=== PATIENT | female | born 1940 | race Caucasian/White ===

== ENCOUNTER 2023-07-11 16:21 | Inpatient (IN) | payer OTHER, SELFPAY ==
[2023-07-11 13:48] VITALS: BP 170/86
[2023-07-11 13:50] VITALS: BMI 28.9
--- NOTE | 2023-07-11 13:50 | ED.GENMED ---
History of Present Illness
General
Chief Complaint: Breathing Problem
Time Seen by Provider: 07/11/23 13:44
Travel History
Have you had any contact with someone who has COVID-19?: No
Do you have any symptoms of coronavirus? Fever > 100 degrees, chills, cough, shortness of breath, sore throat, loss of taste or smell, muscle aches, or headache?: Yes
Symptoms:: see note
History of Present Illness
History of Present Illness:
83-year-old female with history of hypertension, hyperlipidemia, [id number] diabetes, and recently diagnosed asthma presents to the emergency department for evaluation of shortness of breath. She has had cough congestion over the past
week, gradually worsening for the past 2 to 3 days. Went to urgent care today where she was noted to be in respiratory distress with a room air pulse oximeter of 84%. She was given a nebulizer treatment and 9 1 was called. On arrival the patient
has completed her nebulizer but has audible expiratory wheezing with prolonged expiratory phase. She is tachypneic with accessory muscle use. She is not on any daily controller medications for her asthma
Past History
Past History
ED Past Medical History: GERD and HTN
Social History
Tobacco: Non-smoker
Alcohol: None
Review of Systems
Review of Systems
Allergies reviewed?: Yes
All Other Systems: ROS reviewed and negative except as documented in HPI and ROS
Phy Exam
Physical Exam
Physical Exam:
GEN: Ill-appearing, acutely distressed, 5-6 word dyspnea
HEENT: Oral mucosa moist, no scleral icterus
Cardiac: Mildly tachycardic, regular
Lung: Acute distress with accessory muscle use, conversational dyspnea, and coarse expiratory wheezes heard throughout with prolonged expiratory phase
MSK: No gross deformity or injuries
Skin: Good color, no pallor or jaundice, no rashes
Neuro: AO x3, moves all extremities freely
Psych: Calm, cooperative
Scores
Heart Failure Risk
Heart Failure Risk Score: Not Applicable
Course
Orders/Labs/Results
Orders:
Orders
07/11/23 13:48
Albuterol Sulfate [Ventolin Nebules] 10 mg INH R NOW STA
Ipratropium Nebs [Atrovent Nebules] 1 mg INH R NOW STA
Magnesium Sulfate 2 Gram/50 ml [Magnesium Sulfate] 2 gram in 50 ml IV NOW
MethylPREDNISolone PF [Solu-Medrol Pf] 60 mg IV NOW STA
07/11/23 13:50
CR Chest Portable - 1 View Urgent
Comment:
Reason For Exam: SOB
Reason Study Needs to be Portable: Other
07/11/23 13:53
COVID-19 Antigen Urgent
Source: Nasal Swab
Complete Blood Count/With Diff Urgent
Comprehensive Metabolic Panel Urgent
D-Dimer Urgent
Comment: ADD ON
Lactic Acid Q4H
Comment: CANCEL 2nd LACTIC ACID IF 1st LACTIC ACID IS LESS THAN 2
Procalcitonin Urgent
PCT Algorithmm Indication: Respiratory
Prothrombin Time Urgent
Venous Blood Gas Urgent
%Oxygen/Room Air: 84
Blood Culture Q30M
FRANCHESKA Source: Blood/Venous
Specimen Description:
Influenza A+B Rapid Molecular Urgent
FRANCHESKA Source: Nasal Swab
Specimen Description:
07/11/23 13:57
Blood Culture Q30M
FRANCHESKA Source: Blood/Venous
Specimen Description:
07/11/23 14:14
Respiratory Syncytial Virus Urgent
FRANCHESKA Source: Nasal Swab
Specimen Description:
Date Specimen was Collected: 07/11/23
Time Specimen was Collected: 14:11
07/11/23 15:39
Add On- LAB Routine
Tests Added?: BNP
07/11/23 15:44
Admit/Transfer Patient As Directed
Co-Sign Provider:
Level of Care: Inpatient admission
Assign to:: Telemetry
Physician / Group: Quoc
Diagnosis: Hypoxia, Asthma Exacerbation
Reason for Telemetry: Arrhythmia
Date to Stop Telemetry: 07/14/23
Time to Stop Telemetry: 11:00
Reason for Hospitalization: IV steroids, nebs, oxygen
Expected length of stay greater than two midnights?: Yes
ELOS- Estimated Length of Stay in days: 3
I certify the patient meets the requirements for IP care: Yes
07/11/23 15:47
Code Status As Directed
Resuscitation Status: Full Code
07/11/23 15:51
EKG [Electrocardiogram (*1)] Urgent
Reason for Study: Shortness of Breath
07/11/23 15:55
Add On- LAB Urgent
Tests Added?: ddimer
07/11/23 16:18
NT-proBNP Routine
Comment: ADD ON
Troponin I Q6H
Sputum Culture [Respiratory Culture/Gram Stain] Urgent
FRANCHESKA Source: Sputum
Specimen Description:
07/11/23 17:04
Acetaminophen [Tylenol] 650 mg PO Q4HPRN PRN
Dextrose 50%-Water [Dextrose 50% Syringe] 12.5 grams IV [id number] PRN
Glucagon [GlucaGen] 1 mg IM PRN PRN
Insulin Aspart Corrective Mod [Novolog Flexpen-Moderate Resistance] See Protocol SC AC
Ipratropium/Albuterol Sulfate [Duoneb] 3 ml INH R Q4HPRN PRN
Ipratropium/Albuterol Sulfate [Duoneb] 3 ml INH R QID
07/11/23 17:04
Echo 2D MMode Color/Doppler Routine
Reason for Study: dyspnea on exertion
Activity As Directed
Activity Level: Out of Bed-Early Mobility
With Assistance
Bedside Glucose Monitoring As Directed
Frequency: AC&HS
Comment: Change to q6h if pt on TPN, tube feeding or not eating
I&O [Intake/ Output] As Directed
Frequency: q12h
Vital Signs As Directed
Frequency: Per unit guidelines
Weight As Directed
Frequency: Daily
DX Deep Vein Thrombosis Video Routine
07/11/23 18:00
Atorvastatin [Lipitor] 40 mg PO QPM
Enoxaparin Sodium [Lovenox] 40 mg SC QPM
07/11/23 20:00
Doxycycline [Vibramycin] 100 mg PO Q12
Guaifenesin [Mucinex] 600 mg PO Q12
07/11/23 22:00
Troponin I Q6H
Dexamethasone Sod Phosphate [Decadron] 4 mg IV Q8H
07/12/23 04:00
Troponin I Q6H
07/12/23 Breakfast
2000 calorie (17 carb) Diabetic
At Your Request: Full Participation
Diabetic Diet: Sodium, 2 Gram
Glycohemoglobin (HgbA1c) IN AM
07/12/23 08:00
Amlodipine [Norvasc] 10 mg PO DAILY
Aspirin Low Dose EC [Aspir Low (Enteric Coated)] 81 mg PO DAILY
Glimepiride [Amaryl] 1 mg PO DAILY
Pantoprazole [Protonix] 40 mg PO DAILY
07/14/23 11:00
DC Protocol for Telemetry ONCE
Abnormal Lab Results
07/11/23
13:53
RBC 5.62 H 10^6/uL
(4.20-5.40)
Hgb 16.2 H g/dL
(12.0-16.0)
Hct 47.1 H %
(37.0-47.0)
D-Dimer 0.57 H ug/mlFEU
(0.00-0.50)
VBG pCO2 50 H mmHg
(35-48)
VBG pO2 56 H mmHg
(30-50)
VBG HCO3 28.2 H mmol/L
(22-27)
Glucose 134 H mg/dl
(70-99)
Alkaline Phosphatase 164 H U/L
(38-126)
07/11/23 13:53
07/11/23 13:53
Vital Signs
Initial and Last Documented VS:
Initial Vital Signs
Pulse Resp Pulse Ox
76 20 98
07/11/23 13:40 07/11/23 13:40 07/11/23 13:40
Last Documented Vital Signs
Temp Pulse Resp BP Pulse Ox
98.0 F 72 16 144/73 96
07/11/23 19:15 07/11/23 20:04 07/11/23 20:04 07/11/23 19:15 07/11/23 20:04
MDM/Problems Addressed
MDM/Problems Addressed:
83-year-old female presents in respiratory distress. Etiology is most likely reactive airway disease/asthma given profound wheezing and prolonged expiratory phase. Chest x-ray shows no evidence for infiltrate, the patient has no chest pain to
suggest pulmonary embolism. Her labs are otherwise reassuring, viral panel is negative. Negative procalcitonin supports lack of need for antibiotics at this juncture. Due to persistent symptoms despite hour-long nebulizer, IV magnesium, and
steroids will admit the patient to the hospitalist service for further management
*Critical Care Note
Total Time (30-74mins, 75-104mins- exclusive of procedures): 40 minutes
comment:
Critical care time: 40 minutes
Critical care time was exclusive of: Separately billable procedures, treating other patients, and teaching time
Critical care was necessary to treat or prevent imminent or life-threatening deterioration of the following conditions: Acute respiratory distress
Critical care time spent personally by me on the following activities:
[x] Review of old charts
[x] Obtaining history from patient or surrogate
[x] Ordering and review of the laboratory studies
[x] Ordering and review of radiographic studies
[x] Ordering and performing treatments and interventions
[x] Patient patient's response to treatment
[x] Development of treatment plan with patient or surrogate
ED Attending Note
-
Portions of this chart may have been created with voice recognition software.� Occasional wrong word or��sound alike� substitutions may have occurred due to the inherent limitations of voice recognition software.
Discharge Plan
Departure
Patient Disposition: Admit
Date of Disposition: 07/11/23
Time of Disposition: 14:59
Admit to: Med/Surg
Presentation/result/management discussed w/ accepting MD/DO: Hospitalist
Discharge Problem:
Asthma exacerbation, Acute hypoxic respiratory failure
Interventions
Interventions:
*Risk Screen - Suicide Last Done: 07/11/23 13:40
*General Assessment Last Done: 07/11/23 13:40
*Neglect/Abuse Screening Last Done: 07/11/23 13:40
ED- Fall Risk Assessment Last Done: 07/11/23 14:03
*ED COVID-19 Vaccine History Last Done: 07/11/23 14:03
*Nursing Disposition Last Done: 07/11/23 17:02
ED- Cardiac Assessment Last Done: 07/11/23 14:03
ED- Pulmonary Assessment Last Done: 07/11/23 14:03
Discharge Date and Time
Discharge Date/Time: 07/11/23 17:03
[2023-07-11] MEDS: VENTOLIN NEBULES 10 MG INH (14:01)
[2023-07-11] MEDS: SOLU-MEDROL PF 60 MG IV (14:01)
[2023-07-11] MEDS: ATROVENT NEBULES 1 MG INH (14:01)
[2023-07-11] MEDS: MAGNESIUM SULFATE 50 IV (14:02)
[2023-07-11 14:10] LABS: Venous Blood Gas B.E. 1.7 mmol/L (-4 to +4); Venous Blood Gas HCO3 28.2 mmol/L (22-27); Venous Blood Gas O2 Sat % 87.4 %; Venous Blood Gas pCO2 50 mmHg (35-48); Venous Blood Gas pH 7.36 (7.32-7.43); Venous Blood Gas pO2 56 mmHg (30-50)
[2023-07-11 14:14] LABS: % Basophils 0.4 % (0-2); % Eosinophils 4.2 % (0-6); % Immature Granulocytes 0.3 % (0-0.5); % Lymphocytes 25.1 % (20.5-51.1); Absolute Eosinophils 0.4 10^3/uL (0-0.7); Absolute Lymphocytes 2.4 10^3/uL (1.2-3.4); Absolute Monocytes 0.6 10^3/uL (0.1-0.6); Absolute Neutrophils 6.1 10^3/uL (1.4-6.5); Hematocrit 47.1 % (37.0-47.0); Hemoglobin 16.2 g/dL (12.0-16.0); Mean Corp Hgb Conc. 34.4 g/dL (33.0-37.0); Mean Corpuscular Hgb 28.8 pg (27.0-31.0); Mean Corpuscular Volume 83.8 fL (81.0-99.0); Mean Platelet Volume 9.5 fL (7.4-10.4); Nucleated Red Blood Cells % 0 %; Platelet Count 295 10^3/uL (130-400); Red Blood Cell Count 5.62 10^6/uL (4.20-5.40); Red Cell Dist. Width 12.7 % (11.5-14.5); White Blood Cell Count 9.6 10^3/uL (4.8-10.8)
[2023-07-11 14:22] LABS: COVID-19 Antigen Negative (Negative)
[2023-07-11 14:28] LABS: INR 1.05; PT 13.9 Sec (11.4-14.6)
[2023-07-11 14:32] VITALS: BP 160/68
[2023-07-11 14:38] LABS: Procalcitonin < 0.05 ng/ml (0.0-0.25)
[2023-07-11 15:00] VITALS: BP 150/75
[2023-07-11 16:00] LABS: Lactic Acid 1.4 mmol/L (0.7-2.0)
[2023-07-11 16:02] LABS: ALT (SGPT) 22 U/L (0-35); AST (SGOT) 32 U/L (14-36); Albumin 4.6 g/dl (3.5-5.0); Alkaline Phosphatase 164 U/L (38-126); Blood Urea Nitrogen 17 mg/dl (7-17); Calcium 9.7 mg/dl (8.4-10.2); Carbon Dioxide 25 mmol/L (22-30); Chloride 107 mmol/L (98-107); Estimated Creatinine Clearance 64 ml/min; Glucose 134 mg/dl (70-99); Potassium 3.5 mmol/L (3.5-5.1); Sodium 140 mmol/L (135-145); Total Bilirubin 1.1 mg/dl (0.2-1.3); Total Protein 7.5 g/dl (6.3-8.2); eGFR > 60.00
--- NOTE | 2023-07-11 16:02 | HPS.HSE ---
Addendum entered and electronically signed by Presley Kumari MD 07/11/23 16:26:
83-year-old female with shortness of breath and dyspnea on exertion with wheezing and cough. January she had partial thyroidectomy. She saw Dr. Duarte a couple months ago and was started on albuterol inhaler as needed for asthma. For the past 3
weeks or so she has had this cough and wheezing noted got worse. She is not able to bring up any phlegm. No chest pain.
On examination mildly short of breath with conversation
Cardiovascular system S1-S2 appreciated
Chest diffuse inspiratory next very wheezing and coarse breath sounds with cough.
Abdomen soft and nontender
No calf tenderness
Acute asthma exacerbation secondary to acute bronchitis/asthmatic bronchitis
Sputum culture if possible
Supplemental oxygen
Mucolytic's
Steroids and doxycycline
Check echo and troponin also and an EKG
Continue glimepiride, atorvastatin and amlodipine
Follow sugars with steroids
Discussed with at bedside
Original Note:
Family Physician
-
Family Physician: Barbara Cuevas
Chief Complaint
-
Shortness of Breath
History of Present Illness
Patient is an 83-year-old male past with history hypertension, hyperlipidemia, diabetes and recently diagnosed asthma. Patient reports about a month or so ago she noted increased dyspnea on exertion. She was diagnosed with asthma. She notes she
has been using her albuterol inhaler prior to exercise with significant improvement in her symptoms. She notes over the last 3 days she has been experiencing significant cough and increase shortness of breath. She reports shortness of breath is
particularly notable at night, when lying flat. She describes cough as moist, but nonproductive. She admits to trace lower extremity edema. She been to see her PCP today, but symptoms significantly worsened. She attempted to go to urgent care
but could not make it to the front door due to significant symptoms. She is brought to the emergency room for evaluation where she was noted to be hypoxic and placed on supplemental oxygen. Patient denies any prior history of coronary artery
disease or CHF.
Medical History
Past Medical History
Past Medical History: Reports Other
Additional Past Medical History:
Essential Hypertension
Hyperlipidemia
Diabetes Mellitus, Type II
GERD
Exercise Induced Asthma
Past Surgical History: Reports Other
Additional Past Surgical History:
Cholecystectomy
Appendectomy
Oophorectomy
Bilateral Knee Replacement
Partial Thyroidectomy for Goiter
Social History
Tobacco: Non-smoker
Alcohol: Occasional
Personal:
Living: With Family
Family History
Family History: Not pertinent
Allergies / Home Medications
Allergies reflects when Allergies were last updated in [employer].
Home Medications with original date entered in [employer]
Allergy/Medication List:
Allergies
Allergy/AdvReac Type Severity Reaction Status Date / Time
codeine Allergy stomach Verified 07/11/23 13:52
pain
lisinopril Allergy epigastric Verified 07/11/23 13:52
pain
Home Medications
amlodipine 5 mg tablet 10 mg PO DAILY 05/15/14
aspirin 81 mg tablet,delayed release 81 mg PO DAILY ##0 06/03/15
atorvastatin 40 mg tablet 40 mg PO QPM ##0 06/03/15
lactobacillus combination no.4 3 billion cell capsule (Probiotic) 2 mmu cells PO DAILY 11/09/22
cholecalciferol (vit D3) 1,000 unit-vitamin K2 (MK4) 100 mcg tablet (K2 Plus D3) 1 tab PO DAILY 12/22/22
glimepiride 1 mg tablet 1 mg PO DAILY 12/22/22
albuterol sulfate 90 mcg/actuation aerosol inhaler (ProAir HFA) 2 puff inhalation R Q6HPRN PRN sob 07/11/23
Review of Systems
-
A 12 point ROS was completed and negative except as noted: Yes
Constitutional: Denies Fever or Chills
Respiratory: Reports See HPI
Cardiac: Denies Chest Pain or Palpitations
Physical Exam
Vital Signs
Vital Signs
Temp Pulse Resp BP Pulse Ox
98.0 F 75 21 150/75 93
07/11/23 13:48 07/11/23 15:00 07/11/23 15:00 07/11/23 15:00 07/11/23 15:00
Physical Exam
General: Comfortable and Conversant
HEENT: Anicteric, Moist mucous membranes and Oxygen (Nasal Cannula)
Respiratory: Wheezes (Diffuse) and Non Labored Respirations
Cardiac: S1/S2 and Regular Rhythm; No JVD
GI: Soft and Non Distended
Rectal: Deferred by Provider
Musculoskeletal: No Clubbing, No Cyanosis and Other (Trace bilateral lower extremity edema)
Skin: Warm and Dry
Neuro: Awake, Alert, Oriented and Nonfocal/grossly intact
Laboratory Results
-
07/11/23 13:53
Laboratory Results
PT 13.9 Sec (11.4-14.6) 07/11/23 13:53
INR 1.05 07/11/23 13:53
Lactic Acid 1.4 mmol/L (0.7-2.0) 07/11/23 13:53
Data Reviewed
-
Lab Data: Labs Reviewed by me
Impression/Plan
-
Acute Hypoxic Respiratory Insufficiency, secondary to Acute Bronchitis, possible Asthma Exacerbation
-Continue supplemental oxygen via nasal cannula
-Check BNP, Troponin and Echo
-Continue Decadron 4mg q8
-Continue DuoNeb QID and prn
-Continue doxycycline
Essential Hypertension
-Continue amlodipine with hold parameters
Hyperlipidemia
-Continue atorvastatin
Diabetes Mellitus, Type II
-Continue glimepiride
-Monitor sugars and continue coverage insulin
GERD
-Continue Protonix
DVT proph: Lovenox
Code Status: Full Code
[2023-07-11 16:20] LABS: D-Dimer 0.57 ug/mlFEU (0.00-0.50)
[2023-07-11 17:00] VITALS: BP 152/73
[2023-07-11 17:06] LABS: NT-proBNP 137 pg/ml; Troponin I 0.017 ng/ml
[2023-07-11] MEDS: DUONEB INH (17:47)
[2023-07-11 18:30] LABS: Glucose - Point of Care 221 mg/dl (70-99)
[2023-07-11] MEDS: LOVENOX 40 MG SC (18:39)
[2023-07-11] MEDS: LIPITOR 40 MG PO (18:39)
[2023-07-11] MEDS: NOVOLOG FLEXPEN-MODERATE RESISTANCE 3 UNITS SC (18:40)
[2023-07-11 19:15] VITALS: BP 144/73
[2023-07-11] MEDS: DUONEB 3 ML INH (19:35)
[2023-07-11] MEDS: MUCINEX 600 MG PO (20:32)
[2023-07-11] MEDS: VIBRAMYCIN 100 MG PO (20:32)
[2023-07-11] MEDS: DECADRON 4 MG IV (21:17)
[2023-07-11 21:31] LABS: Glucose - Point of Care 315 mg/dl (70-99)
[2023-07-11 22:40] LABS: Troponin I 0.015 ng/ml
[2023-07-11 23:14] VITALS: BP 143/61
[2023-07-12 02:52] VITALS: BP 141/74
[2023-07-12 05:14] LABS: Troponin I < 0.012 ng/ml
[2023-07-12] MEDS: DECADRON 4 MG IV ×3 (05:29→21:24)
[2023-07-12 06:00] VITALS: BMI 27.8
[2023-07-12 07:00] VITALS: BP 156/79
[2023-07-12] MEDS: DUONEB 3 ML INH ×4 (07:33→19:11)
[2023-07-12 08:22] LABS: Glucose - Point of Care 163 mg/dl (70-99)
[2023-07-12] MEDS: NOVOLOG FLEXPEN-MODERATE RESISTANCE 1 UNITS SC (08:29)
[2023-07-12] MEDS: ASPIR LOW (ENTERIC COATED) 81 MG PO (08:30)
[2023-07-12] MEDS: VIBRAMYCIN 100 MG PO ×2 (08:30→20:11)
[2023-07-12] MEDS: AMARYL 1 MG PO (08:30)
[2023-07-12] MEDS: NORVASC 10 MG PO (08:30)
[2023-07-12] MEDS: PROTONIX 40 MG PO (08:30)
[2023-07-12] MEDS: MUCINEX 600 MG PO ×2 (08:30→20:11)
[2023-07-12 10:20] LABS: Glycohemoglobin (HgbA1c) 6.9 % (4.0-5.6)
--- NOTE | 2023-07-12 10:38 | CON.PUL ---
Consultation
Consultation Request
Date/Time Consultation Requested: 07/12/2023826
Date/Time Consultation Performed: 07/12/2023 - 1044
Requesting Provider: Dr. Kumari
Performing Provider: Dr. Garrison
Reason for Consultation: Asthma/Hypoxia
Medical History
-
Chief Complaint: SOB
History of Present Illness:
83-year-old female non-smoker with past medical history of asthma who was BIBEMS from urgent care due to shortness of breath with hypoxia. Patient says she has been having cough and congestion with worsening shortness of breath for the last several
days�1 week. Today she went to urgent care and was in respiratory distress with SpO2 84% on room air. EMS arrived and administered oxygen and nebulizer treatment. In the ER she arrived on aerosol mask at 6 L/min with saturations 98%. In the ER
she was saturating 98% on 2 L/min nasal cannula. She was in moderate respiratory distress with wheezing. Blood gas showed mild respiratory acidosis with pH 7.36 with pCO2 50. Chemistry was insignificant with exception of elevated ALP to 164. WBC
was normal at 9.6, Hb slightly elevated at 16.2. COVID antigen negative. CXR showed no active cardiopulmonary disease, and she was given Solu-Medrol 60 mg in the ER in addition to 10 mg of Adderall, 1 mg Atrovent and also given magnesium 2 g.
Patient admitted to the hospitalist service and now pulmonary consulted for additional recommendations.
Of note, patient follows with us in the [facility] office with the COUNSELING DIRECTOR's, Sandra Andujar as well as Dr. Murphy. Last office visit with Dr. Murphy on 04/13/2023. She has a chronic cough and this improved with treatment with of her GERD.
Also recommended to take Flonase and albuterol as needed. She does have a known RML lung nodule now measuring 9 mm compared to 7 mm on prior study from September 2022. Also has 9 mm nodule in the LLL. She had PET/CT done in October 2022 which did not
show any FDG uptake abnormality within the lungs. Last PFT was performed in October 2022 showing an almost complete reversal of her obstructive lung defect which was moderate. TLC was reduced at 68% however her vital capacity was preserved at 83%.
She did have a mildly reduced diffusion capacity at 68% however her DLco/VA was preserved at 97% - this is all consistent with COPD due to unremitting asthma with borderline restrictive lung defect. Her spirometry from 04/13/2023 showed complete
reversal of her moderate obstructive lung defect, with post bronchodilator FEV1 being 97% predicted, improving from 70% predicted pre-bronchodilator.
When I saw the pt she was in bed in NAD on room air. Has a cough and would like something for that. She denies CP, MOREIRA, abd pain, N/V/f/c.
PMHx: Hypertension/hyperlipidemia, diabetes mellitus type 2, GERD, exercise-induced asthma, osteoarthritis, cataracts with impaired vision, lumbar radiculopathy, GERD with esophagitis
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
Past Medical History
Past Medical History: Other (Above as per HPI)
Past Surgical History: Other (Above as per HPI)
Social History
Tobacco: Non-smoker
Alcohol: Occasional
Drug: None
Personal:
Family History
Family History: Reviewed & Not Pertinent
Allergies / Home Medications
Allergies
Allergy/AdvReac Type Severity Reaction Status Date / Time
codeine Allergy stomach Verified 07/11/23 13:52
pain
lisinopril Allergy epigastric Verified 07/11/23 13:52
pain
Home Medications
Medication Instructions Recorded Confirmed Last Taken Type
amlodipine 5 mg tablet 10 mg PO DAILY Blood Pressure 05/15/14 07/11/23 07/11/23 History
aspirin 81 mg tablet,delayed 81 mg PO DAILY ##0 06/03/15 07/11/23 07/11/23 Rx
release
atorvastatin 40 mg tablet 40 mg PO QPM ##0 06/03/15 07/11/23 07/11/23 Rx
lactobacillus combination no.4 3 2 mmu cells PO DAILY probiotic 11/09/22 07/11/23 07/11/23 History
billion cell capsule (Probiotic)
cholecalciferol (vit D3) 1,000 1 tab PO DAILY Supplement 12/22/22 07/11/23 07/11/23 History
unit-vitamin K2 (MK4) 100 mcg
tablet (K2 Plus D3)
glimepiride 1 mg tablet 1 mg PO DAILY Diabetes 12/22/22 07/11/23 07/11/23 History
albuterol sulfate 90 mcg/actuation 2 puff inhalation R Q6HPRN PRN sob 07/11/23 07/11/23 07/11/23 History
aerosol inhaler (ProAir HFA)
Review of Systems
-
History Source: Patient
All other systems: Negative unless noted (12 point ROS performed and is negative unless mentioned above.)
Vitals / Labs / Diagnostic Testing
Vital Signs
Temp Pulse Resp BP Pulse Ox
97.9 F 74 16 156/79 96
07/12/23 07:00 07/12/23 08:30 07/12/23 07:38 07/12/23 08:30 07/12/23 09:04
Lab Data
07/11/23 13:53
07/11/23 13:53
Laboratory Results
07/11/23
13:53
PT 13.9
INR 1.05
Microbiology
07/11/23 14:14 Nasal Swab Respiratory Syncytial Virus Culture - Final
Negative for Respiratory Syncytial Virus.
A false negative result may be obtained with a specimen
collected early in the acute phase. If symptoms persist, a
new specimen should be tested.
07/11/23 13:53 Nasal Swab Influenza Types A & B ([facility]) - Final
Negative for Influenza A & B, NAAT
Negative results must be combined with clinical observations
and patient history.
Nucleic Acid Amplification test (NAAT)performed on the
[employer] platform.
Diagnostic Testing:
Physical Exam
-
HEENT: Normocephalic and Anicteric
Cardiovascular: S1/S2
Respiratory: Wheeze, Rales (neg), Rhonchi and Non-Labored Respirations
GI: Soft, Non Distended, Non Tender and Normal Bowel Sounds
Neurology: Awake and Alert
Skin: Warm and Dry
General: Comfortable
Assessment
-
Assessment: 83-year-old female with past medical history of asthma who was BIBEMS from urgent care due to shortness of breath with hypoxia. Patient says she has been having cough and congestion with worsening shortness of breath for the last
several days�1 week. Today she went to urgent care and was in respiratory distress with SpO2 84% on room air. EMS arrived and administered oxygen and nebulizer treatment. In the ER she arrived on aerosol mask at 6 L/min with saturations 98%. In
the ER she was saturating 98% on 2 L/min nasal cannula. She was in moderate respiratory distress with wheezing. Blood gas showed mild respiratory acidosis with pH 7.36 with pCO2 50. Chemistry was insignificant with exception of elevated ALP to
164. WBC was normal at 9.6, Hb slightly elevated at 16.2. COVID antigen negative. CXR showed no active cardiopulmonary disease, and she was given Solu-Medrol 60 mg in the ER in addition to 10 mg of Adderall, 1 mg Atrovent and also given
magnesium 2 g. Patient admitted to the hospitalist service and now pulmonary consulted for additional recommendations.
Chronic medical conditions [employer]: Hypertension/hyperlipidemia, diabetes mellitus type 2, GERD, exercise-induced asthma, osteoarthritis, cataracts with impaired vision, lumbar radiculopathy, GERD with esophagitis,
Impression:
#Acute asthma exacerbation
#Acute respiratory failure with hypoxemia on supplemental oxygen
#Hx of pulmonary nodules including 9mm in RML and 9mm in LLL (per CT chest in 03/2023) - PET negative in October 2022
#Hx of mild intermittent asthma/EIA
#DM type II
Plan:
- Continue systemic steroids - currently on decadron 4mg IV q8hr --> wean as tolerated
- Maintain BG >100 and <180
- Duonebs QID with prn doses in between
- Check infectious workup with blood, sputum Cx and urine antigens (legionella + S. pneumo)
- Doxy 100mg q12hr - unclear if she needs Abx given no evidence of PNA on CXR
- Anti-tussants as needed
- Encourage IS
- Up OOB as tolerated
- Replete K>3.5, Mg>1.8
- MAP>65
- DVT ppx
Pulmonary service will continue to follow. I will also ensure patient has outpatient follow-up after discharge.
Data:
CXR 07-11-2023: No active cardiopulmonary disease.
CT Chest 03-28-2023:
1. � Minimal interval increase in size of right middle lobe nodule, now measuring 9 mm on axial imaging as compared with 7 mm on the prior study. Unchanged craniocaudad diameter of 7 mm. This area showed no abnormal FDG uptake on prior PET/CT,
follow-up as deemed clinically warranted.
2. � No significant interval increase in size of 9 mm left lower lobe nodule. No significant interval increase in size of multiple additional micronodules as above.
3. � Post left hemithyroidectomy.
4. � Duplication of superior vena cava, normal anatomic variation.
5. 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 Ectasia main pulmonary artery suggesting possible pulmonary hypertension.
Whole Body PET/CT :There is no evidence for FDG avid abnormality within the lungs. Specifically, no evidence for FDG uptake involving bilateral lower lung nodules. On prior CT of the chest report, a follow-up CT of the chest was recommended in
3 months, which would correspond to a follow-up CT of the chest in December of 2022.
Large left thyroid gland mass with low-level FDG uptake, calcifications, and heterogeneous density. Findings are compatible with benign goiter, with associated mass effect and deviation of the trachea toward the right.
No evidence of FDG avid malignancy on this examination.
Outpatient [facility] Data:
PFT:
������ Spirometry 10/12/22- FVC 1.65/61%, FEV1 1.16/58%, ratio 70%, no significant BD response. Suggestive of mild restrictive pattern.
�������PFT 11/05/22- FVC 2.15 or 80%, FEV1 1.48 or 74%, Ratio 66 -->69 (with BD). TLC 3.51 or 68%, DLCO 13.80 68% and DLco/VA: 97%
�������Spirometry 04/13/23-FEV1 1.31-70%, FVC 1.91-76%, 39% improvement postbronchodilator. Mild obstruction.
6 MWT:
������ 6 minute walk test 10/12/22- At rest, O2 98% on room air, heart rate 65. With ambulation, O2 deniz 95%, max heart rate 98. 0/10 on dyspnea scale. Ambulated 900 feet.
FENO:
������ FeNO 10/12/22- 36 PPB.
[2023-07-12 13:02] LABS: Glucose - Point of Care 262 mg/dl (70-99)
--- NOTE | 2023-07-12 13:11 | W.PN.HOSP.TC ---
Today's Communication/Plan
-
steroids
Insulin
Nebs
Assessment / Plan
Assessment / Plan
83-year-old female with shortness of breath and dyspnea on exertion with wheezing and cough.� January she had partial thyroidectomy.� She saw Dr. Duarte a couple months ago and was started on albuterol inhaler as needed for asthma.� For the past 3
weeks or so she has had this cough and wheezing noted got worse.� She is not able to bring up any phlegm.� No chest pain.
On examination able to talk in full sentences
Cardiovascular system S1-S2 appreciated
Chest chest-diffuse inspiratory and expiratory wheezes
Abdomen soft and nontender
No pedal edema
# Acute asthmatic bronchitis/acute bronchitis/asthma exacerbation
Off supplemental oxygen now continue steroids
Continue doxycycline
D-dimer negative for age
Continue mucolytic's
Sputum culture
Pulmonary consultation
# Hypertension-continue amlodipine
# Hyperlipidemia-continue atorvastatin
# Diabetes-continue glimepiride and monitor sugars while on steroids
Add NovoLog 4 units before meals.
Hemoglobin A1c 6.9
# GERD-continue Protonix
# DVT proph: Lovenox
# Code Status: Full Code
D/W RN
Anticipated Discharge: 24 - 48 hours
Subjective/Interval History
-
Date of Service: July 12, 2023
Objective Data
-
Vital Signs:
Vital Signs
Temp Pulse Resp BP Pulse Ox
97.9 F 88 15 156/79 97
07/12/23 07:00 07/12/23 11:20 07/12/23 11:20 07/12/23 08:30 07/12/23 11:20
[2023-07-12] MEDS: NOVOLOG FLEXPEN-MODERATE RESISTANCE SC (13:14)
[2023-07-12 15:00] VITALS: BP 154/67
--- NOTE | 2023-07-12 15:34 | W.PN.UPDATE ---
Update Note
Progress Note Update
1 set of blood culture gram-positive cocci in clusters-wait for identification possibly contaminant
Give 1 dose of vancomycin
Repeat blood cultures
--- NOTE | 2023-07-12 16:07 | CM ---
Reviewed chart, met with patient and her spouse who was at bedside to obtain information for assessment. Patient stated that she lives with her spouse in a one story ranch style home with no steps to enter and no steps once inside.
Patient described herself as independent with all of her ADLs, personal care, bathing, dressing, toiletng and ambulates without the use of an assistive device.
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 She does not drive but her spouse takes her to appointments and assists with the shopping.
Patient denied any DME at home except for a walker and a cane that she acquired after knee sx a few years ago. She denied o2 or a nebulizer.
Patient has a prescription plan and uses [facility] for all of her medications in [place].
She has a PCP-Dr. Barbara Cuevas.
Patient has never been to a SNF. She has had VN through after her sx but is not current.
Patient stated that she is feeling a lot better and would like to return home when medically stable. She hopes to be able to wean off of the o2 as she does not want it for home.
Plan: Case management will continue to follow and assist with discharge planning. Patient would like to return home with her spouse who is supportive upon medical clearance. Will watch for o2 needs.
[2023-07-12] MEDS: VANCOCIN 275 MG IV (16:40)
[2023-07-12 16:51] LABS: Glucose - Point of Care 227 mg/dl (70-99)
[2023-07-12] MEDS: NOVOLOG FLEXPEN 4 UNITS SC (16:52)
[2023-07-12] MEDS: NOVOLOG FLEXPEN-MODERATE RESISTANCE 3 UNITS SC (16:53)
[2023-07-12] MEDS: LIPITOR 40 MG PO (18:47)
[2023-07-12] MEDS: LOVENOX 40 MG SC (18:47)
[2023-07-12 20:00] VITALS: BP 150/65
[2023-07-12 21:19] LABS: Glucose - Point of Care 210 mg/dl (70-99)
[2023-07-12] MEDS: TESSALON PERLES 200 MG PO (21:27)
[2023-07-12 23:00] VITALS: BP 148/66
[2023-07-13 02:07] VITALS: BP 134/61
[2023-07-13 06:00] VITALS: BMI 27.8
[2023-07-13] MEDS: DECADRON 4 MG IV (06:13)
[2023-07-13 07:00] VITALS: BP 156/81
[2023-07-13 07:05] LABS: Hematocrit 37.5 % (37.0-47.0); Mean Corp Hgb Conc. 34.1 g/dL (33.0-37.0); Mean Corpuscular Hgb 28.8 pg (27.0-31.0); Mean Corpuscular Volume 84.3 fL (81.0-99.0); Mean Platelet Volume 10.1 fL (7.4-10.4); Platelet Count 254 10^3/uL (130-400); Red Blood Cell Count 4.45 10^6/uL (4.20-5.40); Red Cell Dist. Width 12.8 % (11.5-14.5); White Blood Cell Count 16.3 10^3/uL (4.8-10.8)
[2023-07-13 07:25] LABS: Blood Urea Nitrogen 29 mg/dl (7-17); Calcium 9.5 mg/dl (8.4-10.2); Carbon Dioxide 24 mmol/L (22-30); Chloride 106 mmol/L (98-107); Estimated Creatinine Clearance 63 ml/min; Glucose 179 mg/dl (70-99); Potassium 3.9 mmol/L (3.5-5.1); Sodium 140 mmol/L (135-145); eGFR > 60.00
[2023-07-13 07:31] LABS: Hemoglobin 12.8 g/dL (12.0-16.0)
[2023-07-13] MEDS: DUONEB 3 ML INH ×4 (07:39→20:01)
[2023-07-13 08:10] LABS: Glucose - Point of Care 164 mg/dl (70-99)
[2023-07-13] MEDS: NORVASC 10 MG PO (08:30)
[2023-07-13] MEDS: AMARYL 1 MG PO (08:30)
[2023-07-13] MEDS: PROTONIX 40 MG PO (08:30)
[2023-07-13] MEDS: MUCINEX 600 MG PO (08:30)
[2023-07-13] MEDS: ASPIR LOW (ENTERIC COATED) 81 MG PO (08:30)
[2023-07-13] MEDS: NOVOLOG FLEXPEN-MODERATE RESISTANCE 1 UNITS SC ×3 (08:32→17:17)
[2023-07-13] MEDS: NOVOLOG FLEXPEN 6 UNITS SC (08:33)
[2023-07-13] MEDS: VIBRAMYCIN 100 MG PO ×2 (08:39→20:00)
[2023-07-13] MEDS: NOVOLOG FLEXPEN SC (08:41)
[2023-07-13] MEDS: TYLENOL 650 MG PO ×2 (08:55→16:08)
[2023-07-13 11:00] VITALS: BP 153/65
--- NOTE | 2023-07-13 11:50 | W.PN.HOSP.TC ---
Today's Communication/Plan
-
Wean steroids
Lung exam much better
If stable possible discharge tomorrow on steroid taper
Assessment / Plan
Assessment / Plan
83-year-old female with shortness of breath and dyspnea on exertion with wheezing and cough.� January she had partial thyroidectomy.� She saw Dr. Duarte a couple months ago and was started on albuterol inhaler as needed for asthma.� For the past 3
weeks or so she has had this cough and wheezing noted got worse.� She is not able to bring up any phlegm.� No chest pain.
On examination able to talk in full sentences
Cardiovascular system S1-S2 appreciated
Chest chest-few scattered right sided exp wheezes only.
Abdomen soft and nontender
No pedal edema
# Acute asthmatic bronchitis/acute bronchitis/asthma exacerbation
Off supplemental oxygen now continue steroids
Continue doxycycline
D-dimer negative for age
Continue mucolytic's
Sputum culture
Pulmonary consultation appreciated
Decrease steroids
# Blood cultures with coagulase-negative Staphylococcus-contaminant
# Hypertension-continue amlodipine
# Hyperlipidemia-continue atorvastatin
# Diabetes-continue glimepiride and monitor sugars while on steroids
Add NovoLog 5 units before meals.
Hemoglobin A1c 6.9
# GERD-continue Protonix
# DVT proph: Lovenox
# Code Status: Full Code
D/W RN
Anticipated Discharge: Within 24 hours
Subjective/Interval History
-
Date of Service: July 13, 2023
Objective Data
-
Labs:
Laboratory Results
07/13/23
06:38
WBC 16.3 H
Hgb 12.8 D
Hct 37.5
Plt Count 254
Sodium 140
Potassium 3.9
Chloride 106
Carbon Dioxide 24
BUN 29 H
Creatinine 0.7
Glucose 179 H
Calcium 9.5
Vital Signs:
Vital Signs
Temp Pulse Resp BP Pulse Ox
98.3 F 84 18 153/65 94
07/13/23 11:00 07/13/23 11:23 07/13/23 11:23 07/13/23 11:00 07/13/23 11:23
I&O
07/12/23 07/13/23 07/14/23
06:59 06:59 06:59
Intake Total 500 / 500
Balance 500 / 500
[2023-07-13 12:03] LABS: Glucose - Point of Care 169 mg/dl (70-99)
--- NOTE | 2023-07-13 12:32 | PN.CDI ---
Addendum entered and electronically signed by Presley Kumari MD 07/14/23 14:52:
This is VBG
NO change in documentation
Original Note:
CDI
- -
CDI:
Physician Documentation Request
Admit Date: 07/11/23 16:21
Dear Doctor Quoc,
Patient presented to ED for evaluation of shortness of breath. Went to urgent are and noted to be in respiratory distress with a room air pulse oximeter of 84%. ED notes patient to be tachypneic with accessory muscle use and to have 5-6 word
dyspnea course expiratory wheezes heard throughout with prolonged expiratory phase.
ED discharge problem list 'acute hypoxic respiratory failure'
Pulmonary progress note list 'acute respiratory failure with hypoxemia ....'
Hospitalist states 'acute hypoxic respiratory insufficiency...'
Please clarify which of the following accurately represents the patient's respiratory status:
Acute hypoxic respiratory failure
Hypoxia
Other
Additional information for Respiratory Failure:
Recognized criteria for Respiratory Failure (Source: [facility] Mar/Apr 2013)
ABGs: (1 or more) Symptoms Please indicate type if known
1. p)2 <60 or RA SPO2 <91% on RA 1. Tachypnea, SOB, dyspnea Hypoxic
2. pCO2 50 and pH <7.35 2. Use of accessory muscles Hypercapnic
3. pO2 decrease of pCO2 increase by 3. Pallor or cyanosis Hypoxic and Hypercapnic
10 mmHg from baseline if known 4. Anxiety or restlessness Unable to determine
5. Unable to speak in full sentences
Supplemental O2 of > 40% (5LPM) Intubation is not required
Use of terms such as suspected, likely, concern for, or probable (associated with a specific diagnosis that is being evaluated, monitored, or treated as if it exists) are acceptable and can be coded in the inpatient setting, when documented at the
time of discharge.
Thank you,
Marylin Solano RN, BSN
CDI Specialist
tiger text
Please use your independent medical judgment in providing your response.
[2023-07-13] MEDS: NOVOLOG FLEXPEN 5 UNITS SC ×2 (12:37→17:17)
--- NOTE | 2023-07-13 13:05 | W.PN.PUL3 ---
Today's Communication / Plan
-
Systemic steroids --> can transition to OCS tomorrow with wean
Start LABA/ICS and DC home on symbicort or its equivalent
DuoNebs
Follow up infectious workup; short course Abx assumign remains afebrile with negative cultures
Up OOB as tolerated
IS
Outpatient follow up with [facility] will be arranged.
Assessment
-
Assessment: 83-year-old female with past medical history of asthma who was BIBEMS from urgent care due to shortness of breath with hypoxia. Patient says she has been having cough and congestion with worsening shortness of breath for the last
several days�1 week. Today she went to urgent care and was in respiratory distress with SpO2 84% on room air. EMS arrived and administered oxygen and nebulizer treatment. In the ER she arrived on aerosol mask at 6 L/min with saturations 98%. In
the ER she was saturating 98% on 2 L/min nasal cannula. She was in moderate respiratory distress with wheezing. Blood gas showed mild respiratory acidosis with pH 7.36 with pCO2 50. Chemistry was insignificant with exception of elevated ALP to
164. WBC was normal at 9.6, Hb slightly elevated at 16.2. COVID antigen negative. CXR showed no active cardiopulmonary disease, and she was given Solu-Medrol 60 mg in the ER in addition to 10 mg of Adderall, 1 mg Atrovent and also given
magnesium 2 g. Patient admitted to the hospitalist service and now pulmonary consulted for additional recommendations.
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
Impression:
#Acute asthma exacerbation
#Acute respiratory failure with hypoxemia on supplemental oxygen
#Acute on chronic cough with Hx of GERD and PND
#Hx of pulmonary nodules including 9mm in RML and 9mm in LLL (per CT chest in 03/2023) - PET negative in October 2022
#Hx of mild intermittent asthma/EIA
#DM type II
Plan:
- Continue systemic steroids - currently on decadron 4mg IV q8hr --> wean as tolerated --> weaned to 2mg IV q8hr today --> tomorrow can wean to prednisone starting at 50mg daily and reduce by 10mg every 4th day until off.
- Maintain BG >100 and <180
- Duonebs QID with prn doses in between --> will start LABA/ICS with Symbicort 160mcg tonight. I want her to be DC'd home on maintenance inhaler with LABA/ICS (Symbicort or an equivalent - i.e., Breo, Advair, Dulera).
- Follow up infectious workup with blood, sputum Cx and check urine antigens (legionella + S. pneumo)
- Doxy 100mg q12hr - unclear if she needs Abx given no evidence of PNA on CXR --> if cultures remain negative x 2 days and she is afebrile then would stop Abx or give short course (3-5 days max)
- Anti-tussants with tessalon perles to help reduce her 'hacking' cough (she describes it as a croup cough)
- To help expectorate, increase mucinex to 1200mg q12hr and continue Flutter valve
- I ordered tylenol, nasal saline spray and cetirizine for her sinus headache; advised her to use flonase after discharge given her reported hx of PND
- Encourage IS
- Up OOB as tolerated
- Replete K>3.5, Mg>1.8
- MAP>65
- DVT ppx
Pulmonary service will continue to follow. I will also ensure patient has outpatient follow-up soon after discharge as patient last saw office with Dr. Murphy on 04/13/2023.
Data:
CXR 07-11-2023: No active cardiopulmonary disease.
CT Chest 03-28-2023:
1. � Minimal interval increase in size of right middle lobe nodule, now measuring 9 mm on axial imaging as compared with 7 mm on the prior study. Unchanged craniocaudad diameter of 7 mm. This area showed no abnormal FDG uptake on prior PET/CT,
follow-up as deemed clinically warranted.
2. � No significant interval increase in size of 9 mm left lower lobe nodule. No significant interval increase in size of multiple additional micronodules as above.
3. � Post left hemithyroidectomy.
4. � Duplication of superior vena cava, normal anatomic variation.
5. 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 Ectasia main pulmonary artery suggesting possible pulmonary hypertension.
Whole Body PET/CT :There is no evidence for FDG avid abnormality within the lungs. Specifically, no evidence for FDG uptake involving bilateral lower lung nodules. On prior CT of the chest report, a follow-up CT of the chest was recommended in
3 months, which would correspond to a follow-up CT of the chest in December of 2022.
Large left thyroid gland mass with low-level FDG uptake, calcifications, and heterogeneous density. Findings are compatible with benign goiter, with associated mass effect and deviation of the trachea toward the right.
No evidence of FDG avid malignancy on this examination.
Outpatient [facility] Data:
PFT:
������ Spirometry 10/12/22- FVC 1.65/61%, FEV1 1.16/58%, ratio 70%, no significant BD response. Suggestive of mild restrictive pattern.
�������PFT 11/05/22- FVC 2.15 or 80%, FEV1 1.48 or 74%, Ratio 66 -->69 (with BD). TLC 3.51 or 68%, DLCO 13.80 68% and DLco/VA: 97%
�������Spirometry 04/13/23-FEV1 1.31-70%, FVC 1.91-76%, 39% improvement postbronchodilator. Mild obstruction.
6 MWT:
������ 6 minute walk test 10/12/22- At rest, O2 98% on room air, heart rate 65. With ambulation, O2 deniz 95%, max heart rate 98. 0/10 on dyspnea scale. Ambulated 900 feet.
FENO:
������ FeNO 10/12/22- 36 PPB.
Subjective Data
-
Date of Service:
Date of Service: July 13, 2023
Chief Complaint: Pulmonary Follow Up
Subjective:
Seen this morning. She is doing well, up out of bed, denies worsening SOB. She does have a cough with chest congestion. Difficulty expectorating. She endorses a frontal headache.
Review of Systems
General: Other (neg unless mentioned above)
Objective Data
Data Reviewed
Vital Signs / I&O / Oxygen:
Vital Signs
Temp Pulse Resp BP Pulse Ox
98.3 F 84 18 153/65 94
07/13/23 11:00 07/13/23 11:23 07/13/23 11:23 07/13/23 11:00 07/13/23 11:23
Intake and Output
07/12/23 07/13/23 07/14/23
06:59 06:59 06:59
Intake Total 500 / 500
Balance 500 / 500
SaO2 94
Nasal Cannula flow liters per 1
minute
Physical Exam
General: Respiratory Distress (negative) and Comfortable
HEENT: Normocephalic, Anicteric and Sinus Tenderness (frontal sinus; negtive tenderness at ethmoid or maxillary)
Cardiovascular: S1-S2 and Peripheral Edema (negative)
Respiratory: Wheeze (upper lobe predominant bilaterally), Crackles (negative), Rhonchi (negative), Accessory Resp Muscle Use (negative), Stridor (negative) and Other (reduced breath sounds b/l)
GI: Soft, Non Distended, Non Tender and Normal Bowel Sounds
Neurology: AO x 3 and Tremors (negative)
Skin: Warm and Dry
Labs/Micro/Reports
Lab Data
07/13/23 06:38
07/13/23 06:38
Microbiology
07/11/23 13:53 Blood/Venous Blood Culture - Preliminary
No Growth in 48 hours- Final report to follow
07/11/23 13:57 Blood/Venous Blood Culture - Preliminary
Coagulase neg. staphylococcus
Additional testing on request
07/11/23 13:57 Blood/Venous Gram Stain - Preliminary
07/12/23 13:06 Sputum Respiratory Culture - Final
07/12/23 13:06 Sputum Gram Stain - Final
07/11/23 14:14 Nasal Swab Respiratory Syncytial Virus Culture - Final
Negative for Respiratory Syncytial Virus.
A false negative result may be obtained with a specimen
collected early in the acute phase. If symptoms persist, a
new specimen should be tested.
07/11/23 13:53 Nasal Swab Influenza Types A & B ([facility]) - Final
Negative for Influenza A & B, NAAT
Negative results must be combined with clinical observations
and patient history.
Nucleic Acid Amplification test (NAAT)performed on the
[employer] platform.
[2023-07-13] MEDS: DECADRON 2 MG IV ×2 (15:43→23:58)
[2023-07-13] MEDS: ZYRTEC 10 MG PO (16:08)
[2023-07-13 16:48] LABS: Glucose - Point of Care 170 mg/dl (70-99)
[2023-07-13] MEDS: LIPITOR 40 MG PO (17:18)
[2023-07-13] MEDS: LOVENOX 40 MG SC (17:18)
[2023-07-13] MEDS: OCEAN, SALINE MIST 2 SPRAYS NASAL (17:21)
[2023-07-13] MEDS: MUCINEX 1200 MG PO (20:00)
[2023-07-13] MEDS: TESSALON PERLES 200 MG PO (20:00)
[2023-07-13] MEDS: SYMBICORT 160/4.5 MCG INHALER 2 PUFF INH (20:01)
[2023-07-13 21:19] LABS: Glucose - Point of Care 197 mg/dl (70-99)
[2023-07-13] MEDS: OCEAN, SALINE MIST 1 SPRAYS NASAL (21:19)
[2023-07-13 23:08] VITALS: BP 132/67
[2023-07-14 05:49] VITALS: BMI 27.9
[2023-07-14] MEDS: DUONEB 3 ML INH ×3 (07:28→15:57)
[2023-07-14] MEDS: SYMBICORT 160/4.5 MCG INHALER 2 PUFF INH (07:28)
[2023-07-14 07:49] LABS: Glucose - Point of Care 124 mg/dl (70-99)
[2023-07-14] MEDS: VIBRAMYCIN 100 MG PO (07:50)
[2023-07-14] MEDS: PROTONIX 40 MG PO (07:51)
[2023-07-14] MEDS: NORVASC 10 MG PO (07:51)
[2023-07-14] MEDS: MUCINEX 1200 MG PO (07:51)
[2023-07-14] MEDS: TESSALON PERLES 200 MG PO (07:51)
[2023-07-14] MEDS: OCEAN, SALINE MIST 2 SPRAYS NASAL ×2 (07:52→12:25)
[2023-07-14] MEDS: ASPIR LOW (ENTERIC COATED) 81 MG PO (07:52)
[2023-07-14] MEDS: AMARYL 1 MG PO (07:52)
[2023-07-14] MEDS: NOVOLOG FLEXPEN-MODERATE RESISTANCE SC (07:53)
[2023-07-14] MEDS: NOVOLOG FLEXPEN 5 UNITS SC ×2 (07:55→12:23)
[2023-07-14] MEDS: DECADRON 2 MG IV (07:55)
[2023-07-14 08:16] VITALS: BP 157/72
[2023-07-14] MEDS: CITROMA 150 ML PO (11:03)
[2023-07-14 12:12] LABS: Glucose - Point of Care 163 mg/dl (70-99)
[2023-07-14] MEDS: NOVOLOG FLEXPEN-MODERATE RESISTANCE 1 UNITS SC (12:23)
--- NOTE | 2023-07-14 14:53 | W.PN.PUL3 ---
Today's Communication / Plan
-
Prednisone 50 mg, taper by 10 mg every 4 days till off
Daily GERD therapy
Symbicort 160/4.52 puffs twice a day
Albuterol as needed
Refrain from exercise until flare has resolved. Ambulation is encouraged
Complete doxycycline through 07/17
Follow-up with pulmonary, information left in chart
Assessment
-
Assessment: 83-year-old female with past medical history of asthma who was BIBEMS from urgent care due to shortness of breath with hypoxia. Patient says she has been having cough and congestion with worsening shortness of breath for the last
several days�1 week. Today she went to urgent care and was in respiratory distress with SpO2 84% on room air. EMS arrived and administered oxygen and nebulizer treatment. In the ER she arrived on aerosol mask at 6 L/min with saturations 98%. In
the ER she was saturating 98% on 2 L/min nasal cannula. She was in moderate respiratory distress with wheezing. Blood gas showed mild respiratory acidosis with pH 7.36 with pCO2 50. Chemistry was insignificant with exception of elevated ALP to
164. WBC was normal at 9.6, Hb slightly elevated at 16.2. COVID antigen negative. CXR showed no active cardiopulmonary disease, and she was given Solu-Medrol 60 mg in the ER in addition to 10 mg of Adderall, 1 mg Atrovent and also given
magnesium 2 g. Patient admitted to the hospitalist service and now pulmonary consulted for additional recommendations.
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
Impression:
#Acute asthma exacerbation
#Acute respiratory failure with hypoxemia on supplemental oxygen
#Acute on chronic cough with Hx of GERD and PND
#Hx of pulmonary nodules including 9mm in RML and 9mm in LLL (per CT chest in 03/2023) - PET negative in October 2022
#Hx of mild intermittent asthma/EIA
#DM type II
Plan:
At this time, patient appears to be objectively and subjectively improved
Transition to prednisone 50 mg
Mild wheezing on exam noted, but patient ambulatory without difficulty
Moving forward
Continue with Symbicort 2 puffs twice a day
Albuterol as needed
Reduce prednisone by 10 mg every 4 days until off
Current therapy while on steroids on daily basis
Doxycycline will continue, continue for total of 7 days, last day 07/17
Okay to continue Mucinex, Acapella device
GERD therapy should continue on a daily basis until off steroids
Continue with positional therapy
Would not return to exercise until back to baseline off steroids
Follow-up in pulmonary office in the next 2 weeks, information left in chart
Reviewed with patient, at bedside
All questions answered
Data:
CXR 07-11-2023: No active cardiopulmonary disease.
CT Chest 03-28-2023:
1. � Minimal interval increase in size of right middle lobe nodule, now measuring 9 mm on axial imaging as compared with 7 mm on the prior study. Unchanged craniocaudad diameter of 7 mm. This area showed no abnormal FDG uptake on prior PET/CT,
follow-up as deemed clinically warranted.
2. � No significant interval increase in size of 9 mm left lower lobe nodule. No significant interval increase in size of multiple additional micronodules as above.
3. � Post left hemithyroidectomy.
4. � Duplication of superior vena cava, normal anatomic variation.
5. 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 Ectasia main pulmonary artery suggesting possible pulmonary hypertension.
Whole Body PET/CT :There is no evidence for FDG avid abnormality within the lungs. Specifically, no evidence for FDG uptake involving bilateral lower lung nodules. On prior CT of the chest report, a follow-up CT of the chest was recommended in
3 months, which would correspond to a follow-up CT of the chest in December of 2022.
Large left thyroid gland mass with low-level FDG uptake, calcifications, and heterogeneous density. Findings are compatible with benign goiter, with associated mass effect and deviation of the trachea toward the right.
No evidence of FDG avid malignancy on this examination.
Outpatient [facility] Data:
PFT:
������ Spirometry 10/12/22- FVC 1.65/61%, FEV1 1.16/58%, ratio 70%, no significant BD response. Suggestive of mild restrictive pattern.
�������PFT 11/05/22- FVC 2.15 or 80%, FEV1 1.48 or 74%, Ratio 66 -->69 (with BD). TLC 3.51 or 68%, DLCO 13.80 68% and DLco/VA: 97%
�������Spirometry 04/13/23-FEV1 1.31-70%, FVC 1.91-76%, 39% improvement postbronchodilator. Mild obstruction.
6 MWT:
������ 6 minute walk test 10/12/22- At rest, O2 98% on room air, heart rate 65. With ambulation, O2 deniz 95%, max heart rate 98. 0/10 on dyspnea scale. Ambulated 900 feet.
FENO:
������ FeNO 10/12/22- 36 PPB.
Subjective Data
-
Date of Service:
Date of Service: July 14, 2023
Chief Complaint: Pulmonary Follow Up
Subjective:
Patient is feeling improved. Ambulating without difficulty. Denies chest pain, lightheadedness, dizziness. Ambulating in the room without difficulty. Has mild dry cough, denies hemoptysis. at bedside
Objective Data
Data Reviewed
Vital Signs / I&O / Oxygen:
Vital Signs
Temp Pulse Resp BP Pulse Ox
98.1 F 85 18 157/72 96
07/14/23 08:16 07/14/23 11:47 07/14/23 11:47 07/14/23 08:16 07/14/23 11:47
Intake and Output
07/13/23 07/14/23 07/15/23
06:59 06:59 06:59
Intake Total 500 / 500 840 / 840
Balance 500 / 500 840 / 840
SaO2 96
Nasal Cannula flow liters per 1
minute
Physical Exam
General: Comfortable
HEENT: Normocephalic and Moist Mucous Membranes
Cardiovascular: S1-S2, Regular Rhythm and Peripheral Edema (negative)
Respiratory: Wheeze (Mild expiratory), Crackles (negative), Rhonchi (negative), Non-Labored Respirations, Stridor (negative) and Other (Adequate breath sounds)
GI: Soft, Non Distended, Non Tender and Normal Bowel Sounds
Neurology: Awake, Alert and No Motor Deficits (Able to sit up without difficulty)
Skin: Cyanosis (n) and Jaundice (n)
Labs/Micro/Reports
Lab Data
07/13/23 06:38
07/13/23 06:38
Microbiology
07/11/23 13:53 Blood/Venous Blood Culture - Preliminary
No Growth in 72 hours- Final report to follow
07/13/23 21:12 Urine Legionella Urinary Antigen - Final
Negative for Legionella pneumophila Serogroup 1 antigen.
A negative result does not rule out the possiblity of
Legionella infection due to other serogroups or species of
Legionella. Clinical correlation is recommended.
07/13/23 21:12 Urine Streptococcus pneumoniae Antigen (M - Final
Negative for Streptococcus pneumoniae antigen.
A negative result does not exclude infection with
Streptococcus pneumoniae. Clinical correlation is
recommended.
07/12/23 15:51 Blood/Venous Blood Culture - Preliminary
No Growth in 24 hours- Final report to follow
07/11/23 13:57 Blood/Venous Blood Culture - Preliminary
Coagulase neg. staphylococcus
Additional testing on request
07/11/23 13:57 Blood/Venous Gram Stain - Preliminary
07/12/23 13:06 Sputum Respiratory Culture - Final
07/12/23 13:06 Sputum Gram Stain - Final
07/11/23 14:14 Nasal Swab Respiratory Syncytial Virus Culture - Final
Negative for Respiratory Syncytial Virus.
A false negative result may be obtained with a specimen
collected early in the acute phase. If symptoms persist, a
new specimen should be tested.
07/11/23 13:53 Nasal Swab Influenza Types A & B ([facility]) - Final
Negative for Influenza A & B, NAAT
Negative results must be combined with clinical observations
and patient history.
Nucleic Acid Amplification test (NAAT)performed on the
[employer] platform.
--- NOTE | 2023-07-14 14:54 | W.PN.HOSP.TC ---
Today's Communication/Plan
-
change steroids to PO
Possiblke discharge
Assessment / Plan
Assessment / Plan
83-year-old female with shortness of breath and dyspnea on exertion with wheezing and cough.� January she had partial thyroidectomy.� She saw Dr. Duarte a couple months ago and was started on albuterol inhaler as needed for asthma.� For the past 3
weeks or so she has had this cough and wheezing noted got worse.� She is not able to bring up any phlegm.� No chest pain.
On examination able to talk in full sentences
Cardiovascular system S1-S2 appreciated
Chest chest-few scattered right sided exp wheezes only.
Abdomen soft and nontender
No pedal edema
# Acute asthmatic bronchitis/acute bronchitis/asthma exacerbation
Off supplemental oxygen now continue steroids
Continue doxycycline
D-dimer negative for age
Continue mucolytic's
Sputum culture
Pulmonary consultation appreciated
change steroids to PO
# Blood cultures with coagulase-negative Staphylococcus-contaminant
# Hypertension-continue amlodipine
# Hyperlipidemia-continue atorvastatin
# Diabetes-continue glimepiride and monitor sugars while on steroids
Add NovoLog 5 units before meals.
Stop at discharge use Glimepiride 2 mg instead while on steroids
Hemoglobin A1c 6.9
# GERD-continue Protonix
# DVT proph: Lovenox
# Code Status: Full Code
D/W RN
D/W Pulm
D/W Pt re follow up needs
Anticipated Discharge: Today
Subjective/Interval History
-
Date of Service: July 14, 2023
Objective Data
-
Vital Signs:
Vital Signs
Temp Pulse Resp BP Pulse Ox
98.1 F 85 18 157/72 96
07/14/23 08:16 07/14/23 11:47 07/14/23 11:47 07/14/23 08:16 07/14/23 11:47
I&O
07/13/23 07/14/23 07/15/23
06:59 06:59 06:59
Intake Total 500 / 500 840 / 840
Balance 500 / 500 840 / 840
[2023-07-14 14:56] VITALS: BP 140/74
[2023-07-14] MEDS: DELTASONE 50 MG PO (15:19)
--- NOTE | 2023-07-14 15:54 | CM ---
Received notification from RN that patient is being discharged. Met with patient and her spouse at bedside to obtain signature for IMM. Patient signed and offered no concerns. IMM is on chart.
Plan: Case management will continue to follow and assist with discharge planning. Patient returning home with spouse.
--- NOTE | 2023-07-14 16:18 | W.DS.TRANS ---
Addendum entered and electronically signed by Presley Kumari MD 07/14/23 16:31:
Dictation- [id number]
Original Note:
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
-
Discharge Instructions:
Discharge Diagnosis/Procedures Acute asthmatic bronchitis, asthma exacerbation,
hypertension, high cholesterol, diabetes, GERD
Diet Diabetic, Carb Controlled
Activity As tolerated
Driving Restrictions As prior to admission
Instructions:
Stand-Alone Forms:
Changes to Home Medications: Yes
Discharge Medications:
DC Medications w/original date entered in appening
amlodipine 5 mg tablet 10 mg PO DAILY Blood Pressure 05/15/14
lactobacillus combination no.4 3 billion cell capsule (Probiotic) 2 mmu cells PO DAILY probiotic 11/09/22
cholecalciferol (vit D3) 1,000 unit-vitamin K2 (MK4) 100 mcg tablet (K2 Plus D3) 1 tab PO DAILY Supplement 12/22/22
albuterol sulfate 90 mcg/actuation aerosol inhaler (ProAir HFA) 2 puff inhalation R Q6HPRN PRN sob 07/11/23
aspirin 81 mg tablet,delayed release 81 mg PO DAILY Blood clot prevention/tx #0 tabs 07/14/23
atorvastatin 40 mg tablet 40 mg PO QPM High cholesterol ##0 07/14/23
benzonatate 100 mg capsule 200 mg PO BID Cough #20 caps 07/14/23
budesonide-formoterol HFA 160 mcg-4.5 mcg/actuation aerosol inhaler (Symbicort) 2 puff inhalation R BID Lung/breathing issues #10.2 grams 07/14/23
doxycycline hyclate 100 mg capsule 100 mg PO Q12 Infection #6 caps 07/14/23
glimepiride 1 mg tablet 2 mg PO DAILY Diabetes #30 tabs 07/14/23
guaifenesin 600 mg tablet, extended release 12 hr 600 mg PO Q12 Lung/breathing issues #20 tabs 07/14/23
pantoprazole 40 mg tablet,delayed release 40 mg PO DAILY Gastrointestinal issue #30 tabs 07/14/23
prednisone 10 mg tablet See Rx Instructions .Route .COMPLEX Lung/breathing issues #60 tabs 07/14/23
Home Medication Changes
New
benzonatate 100 mg capsule 200 mg PO BID Cough #20 caps 07/14/23
budesonide-formoterol HFA 160 mcg-4.5 mcg/actuation aerosol inhaler (Symbicort) 2 puff inhalation R BID Lung/breathing issues #10.2 grams 07/14/23
doxycycline hyclate 100 mg capsule 100 mg PO Q12 Infection #6 caps 07/14/23
guaifenesin 600 mg tablet, extended release 12 hr 600 mg PO Q12 Lung/breathing issues #20 tabs 07/14/23
pantoprazole 40 mg tablet,delayed release 40 mg PO DAILY Gastrointestinal issue #30 tabs 07/14/23
prednisone 10 mg tablet See Rx Instructions .Route .COMPLEX Lung/breathing issues #60 tabs 07/14/23
Dose change
glimepiride 1 mg tablet 2 mg PO DAILY Diabetes #30 tabs 07/14/23
Pending Results: No
== END 2023-07-14 17:24 | disposition home or self-care (01) | DRG 202 ==
LOC: 3 WEST ACU 16:21
PROVIDERS: Physician Assistant; Physician Assistant Medical; ADMITTING PHYSICIAN Hospitalist; CONSULT PHYSICIAN Internal Medicine Critical Care Medicine; EMERGENCY PHYSICIAN Emergency Medicine; FAMILY PHYSICIAN Family Medicine
DX: J20.9 Acute bronchitis, unspecified (principal); E87.29 Other acidosis; J44.0 Chronic obstructive pulmonary disease with (acute) lower respiratory infection; J45.21 Mild intermittent asthma with (acute) exacerbation; J44.1 Chronic obstructive pulmonary disease with (acute) exacerbation; Z11.52 Encounter for screening for COVID-19; I10 Essential (primary) hypertension; E11.36 Type 2 diabetes mellitus with diabetic cataract; K21.00 Gastro-esophageal reflux disease with esophagitis, without bleeding; M19.90 Unspecified osteoarthritis, unspecified site; E78.00 Pure hypercholesterolemia, unspecified
CPT/HCPCS: 71045; 80048; 80053; 82805; 82962; 83036; 83605; 83880; 84145; 84484; 85025; 85027; 85379; 85610; 87040; 87150; 87205; 87449; 87502; 87807; 87811; 87899; 93005; 93306; 94640; 96374; 99284

== ENCOUNTER → 2023-08-02 15:11 | Outpatient (REF) | payer OTHER, SELFPAY | LOC: HWRAD 15:11 | PROVIDERS: ATTENDING PHYSICIAN Internal Medicine Critical Care Medicine; FAMILY PHYSICIAN Family Medicine | DX: R91.8 Other nonspecific abnormal finding of lung field (principal) | CPT/HCPCS: 71250 ==

== ENCOUNTER 2023-08-28 23:58 | Emergency (ER) | payer OTHER, SELFPAY ==
[2023-08-29 00:07] VITALS: BP 174/96
[2023-08-29 03:00] VITALS: BP 168/72
--- NOTE | 2023-08-29 03:08 | ED.GENMED ---
History of Present Illness
<MIKI Conner - Last Filed: 08/29/23 05:47>
General
Chief Complaint: Breathing Problem
Source: patient and significant other
Exam Limitations: none
Time Seen by Provider: 08/29/23 03:06
Nursing documentation reviewed up to this point in time: agreed with
Travel History
Have you had any contact with someone who has COVID-19?: No
Do you have any symptoms of coronavirus? Fever > 100 degrees, chills, cough, shortness of breath, sore throat, loss of taste or smell, muscle aches, or headache?: No
History of Present Illness
History of Present Illness:
Patient is a 83 y/o female with PMH of asthma presenting after an incidence of SOB. Patient admits that she stood up from her couch and had an episode of SOB that last 5-20 minutes. Patient states that during the episode she was wheezing and gasping
for breath. Patient admits to a previous episode of similar symptoms that she went to the ED for that resulted in a mucus plug dx. Patient denies CP, abdominal pain, calf pain, cough or hemoptysis. Patient admits that she has been switching between
medication for her asthma. She was previously on Symbicort but was switched to Trelegy last Tuesday. Patient states that she was also prescribed a nebulizing treatment but has been unable to get from the pharmacy due to pharmacy issues.
Past History
<MIKI Conner - Last Filed: 08/29/23 05:47>
Past History
ED Past Medical History: GERD and HTN
Social History
Tobacco: Non-smoker
Alcohol: None
Review of Systems
<MIKI Conner - Last Filed: 08/29/23 05:47>
Review of Systems
All Other Systems: Not applicable
Constitutional: Reports no symptoms
EENT: Reports no symptoms
Respiratory: Reports trouble breathing
Cardiac: Reports no symptoms
ABD/GI: Reports no symptoms
: Reports no symptoms
Musculoskeletal: Reports no symptoms
Skin: Reports no symptoms
Neurological: Reports no symptoms
Endocrine: Reports no symptoms
Hematologic/Lymphatic: Reports no symptoms
Psychiatric: Reports no symptoms
Phy Exam
<Vicky Escalantewson [facility] Last Filed: 08/29/23 05:47>
General Physical Exam
General Presentation: well appearing and no apparent distress
General Skin: warm and dry
General Habitus: normal
General Mental: alert
General Hydration: appears well hydrated
ENT Exam
ENT Exam: EOMI, pharynx normal, neck supple and normocephalic
Eye Exam
Eye Exam: PERRL, cornea clear and conjunctiva normal
Cardiovascular Exam
Cardiovascular Exam: regular rate/rhythm, no edema, no murmur and normal peripheral pulses
Pulmonary Exam
Pulmonary Exam: lungs clear
Gastrointestinal Exam
Gastrointestinal Exam: normal bowel sounds, non tender, soft, no organomegaly, no pulsatile mass and non distended
Neurological Exam
Neurological Exam: alert, oriented x3, no motor deficits, speech normal and sensory deficit (decreased sensation to B/L LE )
Musculoskeletal Exam
Musculoskeletal Exam: full ROM and no edema
Skin Exam
Skin Exam: normal color, warm/dry, no rash and no petechia
Psychiatric Exam
Psychiatric Exam: normal mood/affect
Scores
<Vicky Mcfarland [facility] Last Filed: 08/29/23 05:47>
Heart Failure Risk
Heart Failure Risk Score: Not Applicable
Course
<Vicky Mcfarland [facility] Last Filed: 08/29/23 05:47>
Orders/Labs/Results
Orders:
Orders
08/29/23 04:09
CR Chest - 2 Views Urgent
Comment:
Reason For Exam: cough, dyspnea
Vital Signs
Initial and Last Documented VS:
Initial Vital Signs
Temp Pulse Resp BP Pulse Ox
97.7 F 80 22 174/96 98
08/29/23 00:07 08/29/23 00:07 08/29/23 00:07 08/29/23 00:07 08/29/23 00:07
Last Documented Vital Signs
Temp Pulse Resp BP Pulse Ox
97.7 F 63 19 156/79 95
08/29/23 00:07 08/29/23 05:30 08/29/23 05:30 08/29/23 04:00 08/29/23 05:30
<Tirso Amaya DO - Last Filed: 08/29/23 05:25>
Orders/Labs/Results
Orders:
Orders
08/29/23 04:09
CR Chest - 2 Views Urgent
Comment:
Reason For Exam: cough, dyspnea
Vital Signs
Initial and Last Documented VS:
Initial Vital Signs
Temp Pulse Resp BP Pulse Ox
97.7 F 80 22 174/96 98
08/29/23 00:07 08/29/23 00:07 08/29/23 00:07 08/29/23 00:07 08/29/23 00:07
Last Documented Vital Signs
Temp Pulse Resp BP Pulse Ox
97.7 F 63 19 156/79 95
08/29/23 00:07 08/29/23 05:30 08/29/23 05:30 08/29/23 04:00 08/29/23 05:30
<MIKI Cnoner - Last Filed: 08/29/23 05:47>
MDM/Problems Addressed
Differential Diagnosis Includes:
mucus plug
asthma exacerbation
bronchitis
MDM/Problems Addressed:
episode of trouble breathing
Chronic conditions affecting care:
asthma
<MIKI Conner - Last Filed: 08/29/23 05:47>
*Critical Care Note
Total Time (30-74mins, 75-104mins- exclusive of procedures): Not Applicable
ED Attending Note
<Vicky MIKI Mcfarland - Last Filed: 08/29/23 05:47>
-
Portions of this chart may have been created with voice recognition software.� Occasional wrong word or��sound alike� substitutions may have occurred due to the inherent limitations of voice recognition software.
<Tirso Amaya DO - Last Filed: 08/29/23 05:25>
ED Attending Note
Patient seen and examined by attending physician: Yes
I performed the substantive portion of visit, reviewed & personally made and approve the management plan that is documented in note by myself or ALAINA.: Yes
ED Attending Note:
Pleasant 83-year-old female, past medical history of asthma, presents with respiratory distress. She states for about 5 to 10 minutes she had some breathing issues. She has had this in the past and was told that she was 'mucous plug'. She sees
Drs. Landeros, pulmonology and states that her home albuterol treatments have been helpful. She is having difficulty getting her albuterol Nebules at the pharmacy. It is being ordered for her. She does have rescue inhalers available to her but
she states that they do not last quite as long. She denies fever, chills, nausea or vomiting. She does state that shortly after the event, her symptoms had completely resolved. For the duration of her time here she has felt fine. She wishes to
discharge currently. Patient was seen in conjunction with the PA student. I have reviewed and agree with the history and treatment plan presented. On my independent physical exam, patient is awake, alert, and oriented x3, no acute distress.
Heart is regular rate and rhythm. Lungs are clear to auscultation with faint wheezing diffusely. Abdomen is soft and nontender she moves all 4 extremities. Skin is warm and dry. Normal color.
Chest x-ray is normal.
Patient will be discharged to home. She does not want any prescriptions at this time. Diagnosis acute asthma exacerbation.
Discharge Plan
Departure
Patient Disposition: Home (Routine Discharge)
Date of Disposition: 08/29/23
Time of Disposition: 05:23
Patient with high blood pressure during this ER visit?: Yes
Discharge Problem:
Asthma exacerbation
Instructions: Asthma, Adult (DC), BLOOD PRESSURE
Prescriptions:
No Action
amlodipine 5 MG tablet
10 mg PO DAILY
Probiotic 3 billion cell Capsule
2 mmu cells PO DAILY
K2 Plus D3 1,000-100 unit-mcg Tablet
1 tab PO DAILY
albuterol sulfate [ProAir HFA] 90 mcg/actuation Hfa Aerosol Inhaler
2 puff INHALATION R Q6HPRN PRN (Reason: sob)
budesonide-formoterol [Symbicort] 160-4.5 mcg/actuation Hfa Aerosol Inhaler
2 puff inhalation R BID Qty: 10.2 0RF
doxycycline hyclate 100 mg Capsule
100 mg PO Q12 Qty: 6 0RF
benzonatate 100 mg Capsule
200 mg PO BID Qty: 20 0RF
pantoprazole 40 mg Tablet,Delayed Release (Dr/Ec)
40 mg PO DAILY Qty: 30 0RF
guaifenesin 600 mg Tablet Extended Release 12hr
600 mg PO Q12 Qty: 20 0RF
atorvastatin 40 MG tablet
40 mg PO QPM Qty: 0 0RF
aspirin 81 MG tablet,delayed release (DR/EC)
81 mg PO DAILY Qty: 0 0RF
Rx Instructions:
resume when full dose asa is discontinued
glimepiride 1 mg Tablet
2 mg PO DAILY Qty: 30 0RF
prednisone 10 mg Tablet
See Rx Instructions .ROUTE .COMPLEX Qty: 60 0RF
Rx Instructions:
PO
50 mg daily x4 days, 40 mg daily x4 days,
30 mg daily x4 days, 20 mg daily x4 days,
10 mg daily x3 days
Referrals:
Barbara Cuevas DO [Family Provider] -
Activity Restrictions/Additional Instructions:
It was a pleasure meeting you and taking part in your care. We hope for your continued healing and wellness.
Please read discharge instructions in their entirety. However, they are for general education and may not describe your exact diagnosis at discharge. Information on your ER visit and medical conditions were discussed with you along with appropriate
follow up information...
If indicated, please take your medications as instructed and indicated on discharge paperwork.
Please schedule a follow up appointment as directed. Call to schedule an appointment
Please return to the emergency department with ANY change in, persisting, or worsening of symptoms. If any of your symptoms do not improve, or persist, or become more severe within 6-12 hours, please return to the emergency department for further
care.
Please return to the emergency department if you develop a headache, neck pain/stiffness, fever greater than 100.4F, chest pain, shortness of breath, persistent nausea, vomiting, slurred speech, difficulty walking, numbness/tingling, weakness, signs
of infection or any other symptoms that are worrisome to you.
If you have any questions or concerns please do not hesitate to call the Hospital at or E-mail me directly at [email or web address]
Interventions
Interventions:
*Risk Screen - Suicide Last Done: 08/29/23 00:07
*Neglect/Abuse Screening Last Done: 08/29/23 00:07
ED- Fall Risk Assessment Last Done: 08/29/23 02:40
ED- Cardiac Assessment Last Done: 08/29/23 02:40
ED- Pulmonary Assessment Last Done: 08/29/23 02:40
[2023-08-29 04:00] VITALS: BP 156/79
== END 2023-08-29 05:53 | disposition home or self-care (01) ==
LOC: EMR 23:58
PROVIDERS: EMERGENCY PHYSICIAN Student in an Organized Health Care Education/Training Program; FAMILY PHYSICIAN Family Medicine
DX: J45.901 Unspecified asthma with (acute) exacerbation (principal); I10 Essential (primary) hypertension; K21.9 Gastro-esophageal reflux disease without esophagitis; M19.90 Unspecified osteoarthritis, unspecified site; E11.9 Type 2 diabetes mellitus without complications; Z79.82 Long term (current) use of aspirin; Z79.84 Long term (current) use of oral hypoglycemic drugs; Z87.01 Personal history of pneumonia (recurrent); Z88.8 Allergy status to other drugs, medicaments and biological substances; Z88.5 Allergy status to narcotic agent
CPT/HCPCS: 99283; 71046

== ENCOUNTER → 2023-09-27 10:42 | Outpatient (REF) | payer OTHER, SELFPAY | LOC: HWRAD 10:42 | PROVIDERS: ATTENDING PHYSICIAN Internal Medicine Critical Care Medicine; FAMILY PHYSICIAN Family Medicine | DX: R91.8 Other nonspecific abnormal finding of lung field (principal) | CPT/HCPCS: 71250 ==

== ENCOUNTER → 2023-10-10 14:41 | Outpatient (REF) | payer OTHER, SELFPAY | LOC: HWRAD 14:41 | PROVIDERS: ATTENDING PHYSICIAN Physician Assistant; FAMILY PHYSICIAN Family Medicine | DX: E04.2 Nontoxic multinodular goiter (principal) | CPT/HCPCS: 76536 ==

== ENCOUNTER → 2023-10-26 10:25 | Outpatient (REF) | payer OTHER, SELFPAY ==
[2023-10-26 10:50] VITALS: BP 151/64; BP_SYST 72
== END ==
LOC: RADI 10:25
PROVIDERS: ATTENDING PHYSICIAN Physician Assistant; FAMILY PHYSICIAN Family Medicine
DX: E04.1 Nontoxic single thyroid nodule (principal)
CPT/HCPCS: 88173; 10005

== ENCOUNTER → 2024-02-22 11:53 | Outpatient (REF) | payer OTHER, SELFPAY | LOC: HWRAD 11:53 | PROVIDERS: ATTENDING PHYSICIAN Physician Assistant Medical | DX: R06.2 Wheezing (principal) | CPT/HCPCS: 71046 ==

== ENCOUNTER → 2024-07-12 11:11 | Outpatient (REF) | payer OTHER, SELFPAY | LOC: HWWDC 11:11 | PROVIDERS: ATTENDING PHYSICIAN Family Medicine; REFERRING PHYSICIAN Obstetrics & Gynecology Gynecology | DX: Z12.31 Encounter for screening mammogram for malignant neoplasm of breast (principal) | CPT/HCPCS: 77063; 77067 ==

== ENCOUNTER → 2024-07-16 10:48 | Outpatient (REF) | payer OTHER, SELFPAY | LOC: HWRAD 10:48 | PROVIDERS: ATTENDING PHYSICIAN Internal Medicine Critical Care Medicine; FAMILY PHYSICIAN Family Medicine | DX: R91.8 Other nonspecific abnormal finding of lung field (principal) | CPT/HCPCS: 71250 ==

== ENCOUNTER 2024-10-02 11:32 | Emergency (ER) | payer OTHER, SELFPAY ==
[2024-10-02 11:35] VITALS: BP 167/78
[2024-10-02 11:53] LABS: % Basophils 0.2 % (0-2); % Eosinophils 1.5 % (0-6); % Immature Granulocytes 0.2 % (0-0.5); % Lymphocytes 24.9 % (20.5-51.1); % Monocytes 7.2 % (1.7-9.3); Absolute Eosinophils 0.1 10^3/uL (0-0.7); Absolute Lymphocytes 1.3 10^3/uL (1.2-3.4); Absolute Monocytes 0.4 10^3/uL (0.1-0.6); Absolute Neutrophils 3.5 10^3/uL (1.4-6.5); Hemoglobin 13.6 g/dL (12.0-16.0); Mean Corp Hgb Conc. 33.2 g/dL (33.0-37.0); Mean Corpuscular Volume 84.4 fL (81.0-99.0); Nucleated Red Blood Cells % 0 %; Platelet Count 200 10^3/uL (130-400); Red Blood Cell Count 4.86 10^6/uL (4.20-5.40); Red Cell Dist. Width 13.5 % (11.5-14.5); White Blood Cell Count 5.3 10^3/uL (4.8-10.8)
[2024-10-02 12:32] LABS: COVID-19 Antigen Positive (Negative)
[2024-10-02 12:42] LABS: ALT (SGPT) 22 U/L (0-35); AST (SGOT) 32 U/L (14-36); Albumin 3.8 g/dl (3.5-5.0); Alkaline Phosphatase 88 U/L (38-126); Blood Urea Nitrogen 15 mg/dl (7-17); Calcium 9.3 mg/dl (8.4-10.2); Carbon Dioxide 27 mmol/L (22-30); Chloride 108 mmol/L (98-107); Glucose 166 mg/dl (70-99); Sodium 145 mmol/L (135-145); Total Bilirubin 0.8 mg/dl (0.2-1.3); Total Protein 6.4 g/dl (6.3-8.2); eGFR > 60.00
--- NOTE | 2024-10-02 14:11 | ED.GENMED ---
History of Present Illness
General
Chief Complaint: Breathing Problem
Source: patient
Exam Limitations: none
Time Seen by Provider: 10/02/24 13:49
History of Present Illness
History of Present Illness:
84-year-old female with history of asthma presents with 3 to 4 days worth of cough chest tightness wheeze and chills. She states this started when she was doing yard work. She thought her asthma was flaring. She has been using her inhalers
without significant relief. No other complaints at this time
Past History
Past History
ED Past Medical History: GERD and HTN
Social History
Tobacco: Non-smoker
Alcohol: None
Phy Exam
Physical Exam
Physical Exam:
General: Well-appearing female no acute respiratory distress
HEENT: Normocephalic atraumatic
Heart: Regular rate and rhythm
Lungs: Clear no wheeze
Abdomen is soft nontender
Extremities: No cyanosis or edema
Skin is warm no rash
Scores
Heart Failure Risk
Heart Failure Risk Score: Not Applicable
Course
Orders/Labs/Results
Orders:
Orders
10/02/24 11:38
CXR2 [CR Chest - 2 Views ] Urgent
Comment:
Reason For Exam: cough, SOB
10/02/24 11:45
COVID-19 Antigen Urgent
Source: Nasal Swab
Complete Blood Count/With Diff Urgent
Comprehensive Metabolic Panel Urgent
Influenza A+B Rapid Molecular Urgent
[facility] Source: Nasal Swab
Specimen Description:
Abnormal Lab Results
10/02/24
11:45
Chloride 108 H mmol/L
(98-107)
Glucose 166 H mg/dl
(70-99)
SARS-CoV-2 Antigen Positive A
(Negative)
10/02/24 11:45
10/02/24 11:45
Vital Signs
Initial and Last Documented VS:
Initial Vital Signs
Temp Pulse Resp BP Pulse Ox
98.1 F 78 18 167/78 97
10/02/24 11:35 10/02/24 11:35 10/02/24 11:35 10/02/24 11:35 10/02/24 11:35
Last Documented Vital Signs
Temp Pulse Resp BP Pulse Ox
98.1 F 64 17 162/69 97
10/02/24 11:35 10/02/24 15:10 10/02/24 15:10 10/02/24 15:10 10/02/24 15:10
MDM/Problems Addressed
Differential Diagnosis Includes:
Patient with cough and wheeze for 3 to 4 days with chills. Inhaler is not helping she also notes rib pain from coughing. Consider acute bronchitis versus asthma flare versus pneumonia versus viral illness
Patient did test positive for COVID. Given her rib pain will order x-ray to evaluate for any underlying pneumonia pneumothorax rib injury etc.
Lungs are clear she is not hypoxic no respiratory distress
*Critical Care Note
Total Time (30-74mins, 75-104mins- exclusive of procedures): Not Applicable
Update Note
Update Note:
Chest x-ray clear. No respiratory distress upon reassessment. No indication for intervention. Recommended supportive care stable for discharge
ED Attending Note
-
Portions of this chart may have been created with voice recognition software.� Occasional wrong word or��sound alike� substitutions may have occurred due to the inherent limitations of voice recognition software.
Discharge Plan
Departure
Patient Disposition: Home (Routine Discharge)
Date of Disposition: 10/02/24
Time of Disposition: 15:59
Patient with high blood pressure during this ER visit?: No
Discharge Problem:
COVID-19
Instructions: COVID-19 - ED discharge instructions
Prescriptions:
No Action
amlodipine 5 MG tablet
10 mg PO DAILY
Probiotic 3 billion cell Capsule
2 mmu cells PO DAILY
K2 Plus D3 1,000-100 unit-mcg Tablet
1 tab PO DAILY
albuterol sulfate [ProAir HFA] 90 mcg/actuation Hfa Aerosol Inhaler
2 puff INHALATION R Q6HPRN PRN (Reason: sob)
budesonide-formoterol [Symbicort] 160-4.5 mcg/actuation Hfa Aerosol Inhaler
2 puff inhalation R BID Qty: 10.2 0RF
doxycycline hyclate 100 mg Capsule
100 mg PO Q12 Qty: 6 0RF
benzonatate 100 mg Capsule
200 mg PO BID Qty: 20 0RF
pantoprazole 40 mg Tablet,Delayed Release (Dr/Ec)
40 mg PO DAILY Qty: 30 0RF
guaifenesin 600 mg Tablet Extended Release 12hr
600 mg PO Q12 Qty: 20 0RF
atorvastatin 40 MG tablet
40 mg PO QPM Qty: 0 0RF
aspirin 81 MG tablet,delayed release (DR/EC)
81 mg PO DAILY Qty: 0 0RF
Rx Instructions:
resume when full dose asa is discontinued
glimepiride 1 mg Tablet
2 mg PO DAILY Qty: 30 0RF
prednisone 10 mg Tablet
See Rx Instructions .ROUTE .COMPLEX Qty: 60 0RF
Rx Instructions:
PO
50 mg daily x4 days, 40 mg daily x4 days,
30 mg daily x4 days, 20 mg daily x4 days,
10 mg daily x3 days
Referrals:
Barbara Cuevas DO [Family Provider] -
Activity Restrictions/Additional Instructions:
Rest. Drink plenty of fluids. Use ibuprofen or Tylenol for fever. Return if worse. Continue your inhalers.
Interventions
Interventions:
*Risk Screen - Suicide Last Done: 10/02/24 11:35
*General Assessment Last Done: 10/02/24 11:35
*Neglect/Abuse Screening Last Done: 10/02/24 15:02
*ED- Fall Risk Assessment Last Done: 10/02/24 15:02
*ED COVID-19 Vaccine History Last Done: 10/02/24 11:35
ED- Cardiac Assessment Last Done: 10/02/24 15:01
ED- Pulmonary Assessment Last Done: 10/02/24 15:01
Discharge Date and Time
Print Language: NAMIBIAN
[2024-10-02 15:10] VITALS: BP 162/69
== END 2024-10-02 17:02 | disposition home or self-care (01) ==
LOC: EMR 11:32
PROVIDERS: Emergency Medicine; EMERGENCY PHYSICIAN Student in an Organized Health Care Education/Training Program; FAMILY PHYSICIAN Family Medicine
DX: U07.1 COVID-19 (principal); Z11.52 Encounter for screening for COVID-19; J45.909 Unspecified asthma, uncomplicated; I10 Essential (primary) hypertension; K21.9 Gastro-esophageal reflux disease without esophagitis; Z88.5 Allergy status to narcotic agent; Z88.8 Allergy status to other drugs, medicaments and biological substances; Z79.82 Long term (current) use of aspirin
CPT/HCPCS: 99283; 71046; 80053; 85025; 87502; 87811

== ENCOUNTER → 2024-10-23 12:59 | Outpatient (REF) | payer OTHER, SELFPAY | LOC: HWRAD 12:59 | PROVIDERS: ATTENDING PHYSICIAN Physician Assistant; FAMILY PHYSICIAN Family Medicine | DX: E04.2 Nontoxic multinodular goiter (principal) | CPT/HCPCS: 76536 ==

== ENCOUNTER → 2024-12-17 10:43 | Outpatient (REF) | payer OTHER, SELFPAY | LOC: HWRCS 10:43 | PROVIDERS: ATTENDING PHYSICIAN Physician Assistant; FAMILY PHYSICIAN Family Medicine | DX: I10 Essential (primary) hypertension (principal); R94.31 Abnormal electrocardiogram [ECG] [EKG]; I71.21 Aneurysm of the ascending aorta, without rupture | CPT/HCPCS: 93306 ==

== ENCOUNTER → 2025-04-10 11:07 | Outpatient (REF) | payer OTHER, SELFPAY | LOC: RAD 11:07 | PROVIDERS: ATTENDING PHYSICIAN Physician Assistant; FAMILY PHYSICIAN Family Medicine | DX: J38.01 Paralysis of vocal cords and larynx, unilateral (principal) | CPT/HCPCS: 70491; Q9967 ==

== ENCOUNTER 2025-04-11 12:51 | Outpatient (RCR) | payer OTHER, SELFPAY | END 2025-04-11 23:59 | disposition home or self-care (01) | LOC: RST 12:51 | PROVIDERS: ATTENDING PHYSICIAN Student in an Organized Health Care Education/Training Program; PRIMARYCARE PHYSICIAN Family Medicine | DX: J38.3 Other diseases of vocal cords (principal); R49.0 Dysphonia; J38.01 Paralysis of vocal cords and larynx, unilateral; J38.2 Nodules of vocal cords; Z98.890 Other specified postprocedural states; Z86.16 Personal history of COVID-19 | CPT/HCPCS: 92507; 92524 ==

== ENCOUNTER 2025-05-08 06:30 | Outpatient (RCR) | payer OTHER, SELFPAY | END 2025-05-08 23:59 | disposition home or self-care (01) | LOC: RST 06:30 | PROVIDERS: ATTENDING PHYSICIAN Student in an Organized Health Care Education/Training Program; PRIMARYCARE PHYSICIAN Family Medicine | DX: J38.3 Other diseases of vocal cords (principal); R49.0 Dysphonia; J38.01 Paralysis of vocal cords and larynx, unilateral; J38.2 Nodules of vocal cords; Z98.890 Other specified postprocedural states; Z86.16 Personal history of COVID-19 | CPT/HCPCS: 92507 ==

== ENCOUNTER 2025-05-21 12:40 | Outpatient (RCR) | payer OTHER, SELFPAY | END 2025-05-30 07:17 | disposition home or self-care (01) | LOC: RST 12:40 | PROVIDERS: ATTENDING PHYSICIAN Student in an Organized Health Care Education/Training Program; PRIMARYCARE PHYSICIAN Family Medicine | DX: J38.3 Other diseases of vocal cords (principal); R49.0 Dysphonia; J38.01 Paralysis of vocal cords and larynx, unilateral; J38.2 Nodules of vocal cords; Z98.890 Other specified postprocedural states; Z86.16 Personal history of COVID-19 | CPT/HCPCS: 92507 ==